=== PATIENT | female | born 1960 | race Caucasian/White ===

== ENCOUNTER 2024-11-07 21:33 | Inpatient (IN) | payer MEDICAID ==
[~2024-11-07] VITALS: Ht 157.5 cm; Wt 53.5 kg
[2024-11-07] MEDS ORDERED: TRAZ-182 PO (22:19)
[2024-11-07] MEDS ORDERED: LORA-259 PO (22:19)
[2024-11-07] MEDS ORDERED: ARIP10TA9 PO (22:19)
[2024-11-07] MEDS ORDERED: HYDR-501 PO (22:19)
[2024-11-07] MEDS ORDERED: HYDROCODONE/APAP 10-325 MG TABLET ONE (22:28)
[2024-11-07] MEDS: HYDROCODONE/APAP 10-325 MG TABLET PO ONE (22:30)
[2024-11-08 01:15] VITALS: BP 121/77
[2024-11-08] MEDS ORDERED: ZOLPIDEM 5 MG TABLET PO PRN (01:45)
[2024-11-08] MEDS ORDERED: LORAZEPAM 1 MG TABLET ONE (01:45)
[2024-11-08] MEDS ORDERED: MAGNESIUM HYDROXIDE 30 ML LIQUID UDC PO PRN (01:45)
[2024-11-08] MEDS: LORAZEPAM 0.5 MG TABLET PO ONE (01:47)
[2024-11-08] MEDS: BLOOD SUGAR DIAGNOSTIC 1 EACH STRIP VI ONE (02:04)
[2024-11-08] MEDS: ACETAMINOPHEN 325 MG TABLET PO PRN (07:41)
[2024-11-08 08:00] VITALS: BP 109/61; TEMP 97.2; O2SAT 98
[2024-11-08] MEDS ORDERED: FLUOXETINE HCL 10 MG CAPSULE PO SCH (09:30)
[2024-11-08] MEDS ORDERED: ARIPIPRAZOLE 5 MG TABLET PO SCH (09:30)
[2024-11-08 10:24] LABS: PLATELET COUNT (AUTO) 196 K/uL (179-408); RED BLOOD CELL COUNT(AUTO) 4.14 MIL/uL (3.63-4.92); RED CELL DISTRIBUTION WIDTH 13.7 % (12.3-17.7); WHITE BLOOD COUNT (AUTO) 4.1 K/uL (3.8-11.8)
[2024-11-08] MEDS: LORAZEPAM 1 MG TABLET PO PRN (10:36)
[2024-11-08 10:45] LABS: ASPARTATE AMINOTRANSFERASE 37.0 U/L (15-37); CREATININE 0.7 mg/dL (0.6-1.3); SODIUM SERUM 142.0 mmol/L (136-145); TOTAL PROTEIN, SERUM 6.5 g/dL (6.4-8.2); UREA NITROGEN, BLOOD 14.0 mg/dL (7-18)
[2024-11-08] MEDS: POTASSIUM CHLORIDE 20 MEQ POWDER PACKET GT ONE (11:43)
[2024-11-08] MEDS: HYDROCODONE/APAP 5-325MG TABLET PO PRN (11:48)
[2024-11-08] MEDS: FLUOXETINE HCL 10 MG CAPSULE PO SCH (12:00)
[2024-11-08] MEDS: ARIPIPRAZOLE 5 MG TABLET PO SCH (12:00)
[2024-11-08 16:00] VITALS: BP 118/67; TEMP 97.8; O2SAT 98
[2024-11-08 19:00] VITALS: BP 118/64; TEMP 98.5; O2SAT 95
[2024-11-08] MEDS: TRAZODONE 50 MG TABLET PO SCH (20:17)
[2024-11-09] MEDS: LORAZEPAM 1 MG TABLET PO PRN (05:23)
[2024-11-09 07:50] LABS: PLATELET COUNT (AUTO) 197 K/uL (179-408); RED BLOOD CELL COUNT(AUTO) 4.06 MIL/uL (3.63-4.92); RED CELL DISTRIBUTION WIDTH 13.9 % (12.3-17.7); WHITE BLOOD COUNT (AUTO) 3.3 K/uL (3.8-11.8)
[2024-11-09 07:54] VITALS: BP_SYST 121; BP_SYST 139; BP_DIAS 62; BP_DIAS 77; TEMP 97.4; O2SAT 98
[2024-11-09 08:03] LABS: ASPARTATE AMINOTRANSFERASE 27.0 U/L (15-37); CREATININE 0.7 mg/dL (0.6-1.3); SODIUM SERUM 139.0 mmol/L (136-145); TOTAL PROTEIN, SERUM 6.5 g/dL (6.4-8.2); UREA NITROGEN, BLOOD 18.0 mg/dL (7-18)
[2024-11-09] MEDS: MULTIVITAMINS,THERAPEUTIC TABLET PO SCH (11:29)
[2024-11-09] MEDS: THIAMINE HCL 100 MG TABLET PO SCH (11:29)
[2024-11-09 16:19] VITALS: BP_SYST 112; BP_SYST 120; BP_DIAS 64; BP_DIAS 76; TEMP 97.6; TEMP 97.7; O2SAT 98
[2024-11-09 19:53] VITALS: BP 109/67; TEMP 98; O2SAT 95
[2024-11-10 07:53] VITALS: BP 118/67; TEMP 97; O2SAT 96
[2024-11-10 16:52] VITALS: BP 173/94; TEMP 98.8; O2SAT 96
[2024-11-10 20:00] VITALS: BP 124/89; TEMP 97.8; O2SAT 95
[2024-11-11 08:45] VITALS: BP 152/98; TEMP 98.8; O2SAT 96
[2024-11-11 16:25] VITALS: BP 150/69; TEMP 98.8; O2SAT 96
[2024-11-11 21:53] VITALS: BP 127/77; TEMP 98.6; O2SAT 95
[2024-11-11] MEDS: ZOLPIDEM 5 MG TABLET PO PRN (23:44)
[2024-11-12 08:17] VITALS: BP 158/83; TEMP 98.3; O2SAT 96
[2024-11-12] MEDS: MAG HYDROX/AL HYDROX/SIMETH 30 ML LIQUID UDC PO PRN (14:32)
[2024-11-12 16:08] VITALS: BP 183/105; TEMP 97.5; O2SAT 98
[2024-11-12 20:18] VITALS: BP 152/73; TEMP 98.5; O2SAT 96
[2024-11-13 08:12] VITALS: BP 150/98; TEMP 98.8; O2SAT 96
== END 2024-11-13 11:15 | disposition home or self-care (01) | DRG 750 ==
LOC: ER 21:45 → GPS 23:58
PROVIDERS: ADMIT Psychiatry & Neurology Psychiatry; ATTEND Internal Medicine
DX: F31.5 Bipolar disorder, current episode depressed, severe, with psychotic features (principal); F39 Unspecified mood [affective] disorder; R45.851 Suicidal ideations; Z91.51 Personal history of suicidal behavior; G89.29 Other chronic pain; F10.10 Alcohol abuse, uncomplicated; E87.6 Hypokalemia; F43.81 Prolonged grief disorder; Z88.0 Allergy status to penicillin; T43.206A Underdosing of unspecified antidepressants, initial encounter; Z91.138 Patient's unintentional underdosing of medication regimen for other reason; Y92.009 Unspecified place in unspecified non-institutional (private) residence as the place of occurrence of the external cause; Z63.8 Other specified problems related to primary support group; F41.9 Anxiety disorder, unspecified; Z91.81 History of falling; Z79.899 Other long term (current) drug therapy; M54.50 Low back pain, unspecified
CPT/HCPCS: 36415; 85025